=== PATIENT | male | born 1990 | race African-American/Black ===

== ENCOUNTER 2016-09-04 22:41 | Emergency (ER) | payer OTHER ==
[~2016-09-04] VITALS: Ht 177.8 cm; Wt 49.9 kg
[2016-09-04 22:51] VITALS: TEMP 36.6; Ht 177.8 cm; Wt 49.9 kg
[2016-09-04] MEDS ORDERED: ONDANSETRON 4MG OD TAB PO STA (23:23)
[2016-09-04] MEDS ORDERED: MoRPHine SULFATE 10 MG/ML CARP/VIAL IM STA (23:23)
--- NOTE | 2016-09-05 00:14 | EMERGENCY ROOM VISIT NOTE ---
History First contact with patient: 23:17 Chief Complaint: SHOULDER DISLOCATION Stated Complaint: LEFT SHOULDER DISLOCATED History of Present Illness The patient is a 26 year old male who presents to the Emergency Room via private vehicle accompanied by 2 correctional officers with complaints of "left shoulder dislocated". The patient states that on Sunday he dislocated his shoulder and since then it has gone in and out. He states that around 9 PM this evening he was stretching and his left shoulder popped out. He states he has had this happen in the past. He notes pain in the left shoulder. He also notes minor tingling in this region. There is no neck pain. He denies any trauma to the area. He rates the pain as an 8-9/10. Review of Systems A complete 6-point Review of Systems was discussed with the patient, with pertinent positives and negatives listed in the History of Present Illness. All remaining Review of Systems questions can be considered negative unless otherwise specified. Past Medical/Surgical History Shoulder dislocations Family History Noncontributory at this time. Social History Smoking Status: Current Every Day Smoker Social History: Patient is currently incarcerated at [facility]. Allergies Coded Allergies: No Known Allergies (Unverified , 09/04/16) Physical Exam Vital Signs Date Time Temp Pulse Resp B/P Pulse Ox O2 Delivery O2 Flow Rate FiO2 09/05/16 00:44 76 18 114/76 99 09/04/16 22:51 36.6 79 16 112/71 98 Room Air Physical Exam VITAL SIGNS - Vital signs and nursing notes were reviewed. Within normal limits vital signs. GENERAL -26-year-old male appearing his stated age who is in no acute distress. Communicates well with provider and answers questions appropriately. SKIN - Without rashes. No breaks in the integument in the left upper extremity. HEAD - NC/AT. EYES - Sclera anicteric. Palpebral conjunctiva pink and moist with no injection noted. EARS - No deformities of external structures noted on gross examination bilaterally. NOSE - Midline and without cyanosis. No epistaxis or purulent drainage noted. MOUTH/OROPHARYNX - Without perioral cyanosis. NECK - Neck with FROM. No C-spine tenderness. LUNGS - Chest wall symmetric without accessory muscle use, intercostals retractions, or central cyanosis. Normal vesicular breath sounds CTA B/L. No wheezes, rales, or rhonchi appreciated. CARDIAC - RRR with S1/S2. No murmur, rubs, or gallops appreciated. EXTREMITIES - No clubbing or peripheral cyanosis. No pretibial edema present. There is tenderness to palpation in the left shoulder region. There is near full active and passive range of motion. There are no neurologic, vascular or muscular deficits appreciated. +5/5 strength noted in UE/LE bilaterally. Upon inspection the left shoulder does not appear to be dislocated. Upon palpation left shoulder does not appear to be dislocated. Medical Decision & Procedures ER Provider Diagnostic Interpretation: Radiographs read by myself and the attending. No acute fractures are visualized. No acute dislocations were visualized. Official results to be provided in the morning. Medications Administered Medications (Trade) Dose Ordered Sig/Gerri Route Start Time Stop Time Status Last Admin Dose Admin Morphine Sulfate (MoRPHine SULFATE INJ) 6 mg NOW STAT IM 09/04/16 23:23 09/04/16 23:26 DC 09/05/16 00:24 6 MG Ondansetron HCl (Zofran Odt) 4 mg NOW STAT PO 09/04/16 23:23 09/04/16 23:26 DC 09/05/16 00:23 4 MG Medical Decision Patient was seen and evaluated as above. After obtaining a thorough history and physical examination the patient presents with concern for potential dislocation of the arm. Radiographs were obtained, and the patient was ordered intramuscularly a dose of morphine 6 mg as well as Zofran ODT. This was to help relax the patient and help ease the pain as he was being reduced. Radiographs were reviewed prior to reduction and no acute dislocation or fracture was noted. He noted slight decrease in his pain. I do not suspect that there is any dislocation or fracture at this time. The radial graph were discussed with my attending. I discussed with my attending whether or not a sling for his shoulder should be applied and the decision was ultimately made to not apply a sling. I believe that the patient will likely experience a frozen shoulder and worsening of the symptoms with this. I do believe it is reasonable at this time to discharge the patient as he has not had any reaction to medication. No emergent process. He denied any other ailments or concerns. The patient is to follow-up with orthopedics. His discharge instructions outlined an orthopedic surgeon in which they are to call. He is to return with any new/concerning symptoms. He was educated upon worrisome symptoms which to return, had questions prior to discharge, and was discharged with 2 correctional officers in good condition. In the evaluation and treatment of this patient, the following differential diagnoses were considered: Shoulder Contusion, Shoulder Fracture, Shoulder Dislocation, Thoracic Outlet Syndrome, Adhesive Capsulitis, Rotator Cuff Tear, Proximal Clavicle Head Fracture, Apical Pneumonia, Pneumothorax, Hemothorax, or TB. Impression Primary Impression: Left shoulder pain Departure Information Dispostion Home / Self-Care Condition GOOD Referrals [facility] (PCP) Porfirio Gomes M.D. Patient Instructions My [facility] Additional Instructions You have been treated in the Emergency Department for Shoulder Pain. You have received pain medicine in the emergency department which impairs your ability to operate a vehicle. It is illegal for you to drive after receiving these medicines. Your x-ray does not show any evidence of dislocation at this time. It is recommended to follow up with orthopedics regarding this for further evaluation and management. For pain control, you can use the following qrqa-gux-[id number] medicines (if >12 yo): - Regular strength (325mg/tab) Tylenol (acetaminophen) 2 tabs every 4-6 hours as needed. Do not exceed 12 tablets in a 24 hour period. Avoid taking more than 4 grams (4000 mg) of Tylenol per day. This includes any other sources of acetaminophen you may take on a regular basis. - Regular strength (200 mg/tab) Advil (ibuprofen) 1-2 tabs every 4-6 hours as needed. Do not exceed a dose of 3200 mg per day. If this is a recent injury (<24 hrs), ice can be applied to the area of pain for the first 3 days to help decrease pain and inflammation. You have been provided the number for an Orthopaedic Surgeon. You should call this number as soon as possible to establish a follow-up visit from today's Emergency Department visit. (Dr. Gomes) As we discussed I do not think that a shoulder sling at this time will provided benefit. But you may wear the one that was provided if you find this comfortable. Return to the Emergency Department if your current symptoms worsen despite treatment course outlined above, or if you develop any of the following symptoms : intractable pain despite aforementioned treatment course or new onset of numbness or tingling of the arm. Please feel free to return to the emergency department with any new/concerning symptoms.
[2016-09-05 00:44] VITALS: BP 114/76; PULSE 76; O2SAT 99
--- NOTE | 2016-09-05 06:46 | DIAGNOSTIC IMAGING REPORT ---
LEFT SHOULDER MIN 2 VIEWS ROUTINE CLINICAL HISTORY: Left shoulder pain status post trauma COMPARISON: None. DISCUSSION: 2 views reveal no acute fractures or dislocations. There is a tiny calcific density adjacent the lateral aspect of the humeral head. There is a small bony density projected inferior to the scapular glenoid. 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 IMPRESSION: 1. No evidence of dislocation 2. Small bony density projected inferior to the scapular glenoid. This could relate to a Bankart lesion Electronically signed by: Alvaro Ma M.D. 09/05/2016 6:44 AM Dictated Date/Time: 09/05/2016 6:43 AM
== END 2016-09-05 00:45 | disposition home or self-care (01) ==
LOC: C.EDB 22:42 → C.EDD 09-05 00:45
DX: M25.512 Pain in left shoulder (principal); F17.200 Nicotine dependence, unspecified, uncomplicated

== ENCOUNTER 2017-06-27 12:56 | Emergency (ER) | payer OTHER ==
[~2017-06-27] VITALS: Ht 177.8 cm; Wt 65.0 kg
[2017-06-27 12:58] VITALS: Ht 177.8 cm; Wt 65.0 kg
[2017-06-27] MEDS ORDERED: OXYCODONE HCL IR 5 MG TAB (IMMEDIATE RELEASE) PO STA (13:19)
--- NOTE | 2017-06-27 13:26 | EMERGENCY ROOM VISIT NOTE ---
History First contact with patient: 13:15 Chief Complaint: SHOULDER DISLOCATION Stated Complaint: LT SHOULDER DISLOCATION History of Present Illness The patient is a 27 year old male who presents to the Emergency Room accompanied by 2 correctional officers with complaints of "left shoulder dislocation". The patient states that he has dislocated his left shoulder for 5 times. He states that this occurred at 3:38 AM, as he was sleeping with his left arm outstretched underneath this pill O, it dislocated. He notes pain since that time and minimal numbness/tingling going down the arm. He rates the overall pain currently as a 9/10. He still able to move his distal extremity. Review of Systems A complete 6-point Review of Systems was discussed with the patient, with pertinent positives and negatives listed in the History of Present Illness. All remaining Review of Systems questions can be considered negative unless otherwise specified. Past Medical/Surgical History Shoulder dislocation Family History No pertinent Social History Smoking Status: Current Every Day Smoker Pt. is currently incarcerated Physical Exam Vital Signs Date Time Temp Pulse Resp B/P (MAP) Pulse Ox O2 Delivery O2 Flow Rate FiO2 06/27/17 14:47 36.8 75 18 128/77 99 06/27/17 14:46 75 18 128/77 99 Room Air 06/27/17 12:58 36.8 75 18 123/74 99 Room Air Physical Exam VITAL SIGNS - Vital signs and nursing notes were reviewed. Stable. GENERAL -27-year-old male appearing his stated age who is in no acute distress. Communicates well with provider and answers questions appropriately. SKIN - Without rashes. Skin is intact overlying the left shoulder joint. No evidence of trauma. HEAD - NC/AT. EYES - PERRL with EOMI bilaterally. Sclera anicteric. Palpebral conjunctiva pink and moist with no injection noted. EXTREMITIES - No clubbing or peripheral cyanosis. No pretibial edema present. Anterior deformity to the left shoulder. Extremity intact. Decreased range of motion of left shoulder secondary to pain. Tenderness to left anterior shoulder joint with palpation. He is neurovascularly intact distally of the left upper extremity. Medical Decision & Procedures ER Provider Diagnostic Interpretation: L SHOULDER MIN 2 VIEWS ROUTINE HISTORY: 27 years-old Male L shoulder pain acute left shoulder pain. History of prior left shoulder dislocation. COMPARISON: Left shoulder radiographs 09/04/2016 TECHNIQUE: 3 views of the left shoulder FINDINGS: Remote Hill-Sachs deformity. There is no acute fracture or subluxation. No significant degenerative changes. Soft tissues are unremarkable. The imaged lung braun appear clear. Soft tissues are unremarkable. IMPRESSION: 1. No acute fracture or dislocation. 2. Remote Hill-Sachs deformity. The above report was generated using voice recognition software. It may contain grammatical, syntax or spelling errors. Electronically signed by: Diony Rutherford M.D. Medications Administered Medications (Trade) Dose Ordered Sig/Gerri Route Start Time Stop Time Status Last Admin Dose Admin Oxycodone HCl (Roxicodone Immediate Rel Tab) 5 mg NOW STAT PO 06/27/17 13:19 06/27/17 13:20 DC 06/27/17 13:34 5 MG Medical Decision Patient was seen and evaluated as above. He presents to us today with left shoulder pain. It is dislocated anteriorly on exam. He is neurovascularly intact. He was given oxycodone 5 mg for pain. X-ray reveals no fracture or dislocation. Patient tells me that while being positioned for the x-ray his left shoulder reduced. He now notes minimal pain, but there is no numbness or tingling. He appears stable for outpatient management. I recommend arm sling once he returns to the facility. I also recommend orthopedic follow-up secondary to his recurrent dislocations. He was educated upon management, educated upon worrisome symptoms in which to return, had questions answered prior to discharge, and was discharged home in good condition. In the evaluation and treatment of this patient, the following differential diagnoses were considered: Shoulder Contusion, Shoulder Fracture, Shoulder Dislocation, Thoracic Outlet Syndrome, Adhesive Capsulitis, Rotator Cuff Tear, Proximal Clavicle Head Fracture, Apical Pneumonia, Pneumothorax, Hemothorax, or TB. Impression Primary Impression: Shoulder dislocation, recurrent Departure Information Dispostion Home / Self-Care Condition GOOD Referrals [facility] (PCP) Eric Black MD Patient Instructions My [facility] Additional Instructions You have been treated in the Emergency Department for Shoulder Pain. You have received pain medicine in the emergency department which impairs your ability to operate a vehicle. It is illegal for you to drive after receiving these medicines. He was dislocated and during xrays here he relocated. For pain control, you can use the following wukp-paf-onfcang medicines (if >12 yo): - Regular strength (325mg/tab) Tylenol (acetaminophen) 2 tabs every 4-6 hours as needed. Do not exceed 12 tablets in a 24 hour period. Avoid taking more than 3 grams (3000 mg) of Tylenol per day. This includes any other sources of acetaminophen you may take on a regular basis. - Regular strength (200 mg/tab) Advil (ibuprofen) 1-2 tabs every 4-6 hours as needed. Do not exceed a dose of 3200 mg per day. If this is a recent injury (<24 hrs), ice can be applied to the area of pain for the first 3 days to help decrease pain and inflammation. I recommend follow up with orthopedics secondary to his recurrent dislocations. Dr. Black ([facility]) is a potential contact. I recommend arm sling. Continue to perform range of motion exercises several times per day to help prevent the development of a "frozen shoulder". Return to the Emergency Department if your current symptoms worsen despite treatment course outlined above, or if you develop any of the following symptoms : intractable pain despite aforementioned treatment course or new onset of numbness or tingling of the arm.
--- NOTE | 2017-06-27 14:21 | DIAGNOSTIC IMAGING REPORT ---
L SHOULDER MIN 2 VIEWS ROUTINE HISTORY: 27 years-old Male L shoulder pain acute left shoulder pain. History of prior left shoulder dislocation. COMPARISON: Left shoulder radiographs 09/04/2016 TECHNIQUE: 3 views of the left shoulder FINDINGS: Remote Hill-Sachs deformity. There is no acute fracture or subluxation. No significant degenerative changes. Soft tissues are unremarkable. The imaged lung braun appear clear. Soft tissues are unremarkable. IMPRESSION: 1. No acute fracture or dislocation. 2. Remote Hill-Sachs deformity. The above report was generated using voice recognition software. It may contain grammatical, syntax or spelling errors. Electronically signed by: Diony Rutherford M.D. 06/27/2017 2:19 PM Dictated Date/Time: 06/27/2017 2:17 PM
[2017-06-27 14:47] VITALS: BP 128/77; PULSE 75; TEMP 36.8; O2SAT 99
== END 2017-06-27 14:48 | disposition home or self-care (01) ==
LOC: C.EDB 12:57 → C.EDD 14:48
DX: M24.412 Recurrent dislocation, left shoulder (principal); F17.210 Nicotine dependence, cigarettes, uncomplicated